=== PATIENT | male | born 1945 | race Caucasian/White ===

== ENCOUNTER → 2018-05-26 | Outpatient (CLI) | payer MEDICARE, OTHER ==
[~2018-05-26] MED LIST: DULO30CA2 PO; GABA300C10 PO; TRAM50TA2 PO; amlodipine PO; atorvastatin PO; baclofen PO
[2018-05-26 14:19] LABS: BASOPHILS # (AUTO) 0.05 x10^3/uL (0-0.1); BASOPHILS % (AUTO) 1 % (0-1); EOSINOPHILS # (AUTO) 0.08 x10^3/uL (0-0.4); EOSINOPHILS % (AUTO) 1 % (1-7); LYMPHOCYTES # (AUTO) 1.66 x10^3/uL (1-3.4); LYMPHOCYTES % (AUTO) 27 % (22-44); MD NO; MEAN CORPUSCULAR HEMOGLOBIN 32.6 pg (27.5-34.5); MEAN CORPUSCULAR HGB CONC 34.8 g/dL (33.2-36.2); MEAN CORPUSCULAR VOLUME 93.7 fL (81-97); MEAN PLATELET VOLUME 7.6 fL (7.4-10.4); MONOCYTES # (AUTO) 0.63 x10^3/uL (0.2-0.8); MONOCYTES % (AUTO) 10 % (2-9); NEUTROPHILS % (AUTO) 60 % (42-75); PLATELET COUNT 253 x10^3/uL (130-400); RED BLOOD COUNT 5.02 x10^6/uL (4.38-5.82); RED CELL DISTRIBUTION WIDTH 13.9 % (9.4-14.8)
[2018-05-26 14:29] LABS: ANION GAP 10 mmol/L (5-15); CALCIUM 9.7 mg/dL (8.5-10.1); CHLORIDE 107 mmol/L (98-107); CREATININE 1.01 mg/dL (0.7-1.3)
[2018-05-26 14:30] LABS: INTERNATIONAL NORMALIZED RATIO 1.03 (0.93-1.1); PROTHROMBIN TIME 10.9 Seconds (9.6-11.5)
[2018-05-26 14:31] LABS: MICROSCOPIC NOT IND
[2018-05-26 14:44] LABS: CULTURE INDICATED? NO
== END | disposition home or self-care (01) ==
LOC: STAR 12:33
PROVIDERS: ATTEND Neurological Surgery
DX: Z01.818 Encounter for other preprocedural examination (principal); I44.4 Left anterior fascicular block; M48.062 Spinal stenosis, lumbar region with neurogenic claudication; M51.36 Other intervertebral disc degeneration, lumbar region
CPT/HCPCS: 36415; 71046; 80048; 81003; 85025; 85610; 85730; 93005

== ENCOUNTER 2018-06-04 18:14 | Day surgery (SDC) | payer MEDICARE, OTHER ==
[~2018-06-04] VITALS: Ht 188 cm; Wt 99.5 kg
[2018-06-04 08:39] VITALS: BP 147/95
[~2018-06-04 18:14] MED LIST changes: +AMLO-150 PO; +ATOR10TA9 PO; +BACITRACIN 50,000 UNIT ONE; +BACL-19 PO; +BUPIVACAINE 0.25% ONE; +BUPIVACAINE LIPOSOME/PF 20ML INFIL ONE; +BUPIVACAINE/PF 0.25% EPIDPUSH ONE; +BUPIVACAINE/PF-EPI 0.5% 1:200K ONE; +CEFAZOLIN 1,000 MG ONE; +DEXAMETHASONE 4 MG/ML, 1ML ONE; +FAMOTIDINE 20 MG TABLET PO ONE; +FENTANYL PF 100 MCG/2ML EPIDPUSH ONE; +FENTANYL PF 100 MCG/2ML IV PRN; +FENTANYL PF 100 MCG/2ML ONE; +FENTANYL PF 250 MCG/5ML ONE; +GABAPENTIN 300 MG CAPSULE PO ONE; +HYDROmorphone 1 MG/ML, 1ML IV PRN; +LABETALOL 5MG/ML, 20ML IV PRN; +LACTATED RINGERS 1,000 ML IV SCH; +MEPERIDINE/PF 25MG/0.5ML IVPush PRN; +MIDAZOLAM 1 MG/ML, 2ML ONE; +ONDANSETRON 2MG/ML, 2ML IV PRN; +ONDANSETRON 2MG/ML, 2ML ONE; +OXYcodone 5 MG/5 ML ORAL.SOL UDC PO PRN; +OxyconTIN ER 10 MG TAB.ER PO ONE; +PROMETHAZINE 25 MG/ML, 1ML IV PRN; +PROPOFOL 10 MG/ML, 20ML ONE; +ROCURONIUM 10MG/ML,5ML ONE; +THROMBIN 5,000 UNIT VIAL TP ONE; +hydrALAzine 20 MG/ML, 1ML IV PRN
== END 2018-06-04 18:15 | disposition home or self-care (01) ==
LOC: OUT 18:14
PROVIDERS: ATTEND Neurological Surgery
DX: M48.062 Spinal stenosis, lumbar region with neurogenic claudication (principal); M54.16 Radiculopathy, lumbar region; M71.38 Other bursal cyst, other site; Z79.899 Other long term (current) drug therapy; Z87.891 Personal history of nicotine dependence; Z72.89 Other problems related to lifestyle; Z87.39 Personal history of other diseases of the musculoskeletal system and connective tissue
CPT/HCPCS: 63030; 63035; 72100; C1751; C9290; J0690; J1100; J2250; J2405; J2704; J3010; J3490; J7120

== ENCOUNTER 2019-01-19 12:35 | Outpatient (CLI) | payer MEDICARE, OTHER ==
[~2019-01-19 12:35] MED LIST changes: -BACITRACIN 50,000 UNIT ONE; -BUPIVACAINE 0.25% ONE; -BUPIVACAINE LIPOSOME/PF 20ML INFIL ONE; -BUPIVACAINE/PF 0.25% EPIDPUSH ONE; -BUPIVACAINE/PF-EPI 0.5% 1:200K ONE; -CEFAZOLIN 1,000 MG ONE; -DEXAMETHASONE 4 MG/ML, 1ML ONE; -FAMOTIDINE 20 MG TABLET PO ONE; -FENTANYL PF 100 MCG/2ML EPIDPUSH ONE; -FENTANYL PF 100 MCG/2ML IV PRN; -FENTANYL PF 100 MCG/2ML ONE; -FENTANYL PF 250 MCG/5ML ONE; -GABAPENTIN 300 MG CAPSULE PO ONE; -HYDROmorphone 1 MG/ML, 1ML IV PRN; -LABETALOL 5MG/ML, 20ML IV PRN; -LACTATED RINGERS 1,000 ML IV SCH; -MEPERIDINE/PF 25MG/0.5ML IVPush PRN; -MIDAZOLAM 1 MG/ML, 2ML ONE; -ONDANSETRON 2MG/ML, 2ML IV PRN; -ONDANSETRON 2MG/ML, 2ML ONE; -OXYcodone 5 MG/5 ML ORAL.SOL UDC PO PRN; -OxyconTIN ER 10 MG TAB.ER PO ONE; -PROMETHAZINE 25 MG/ML, 1ML IV PRN; -PROPOFOL 10 MG/ML, 20ML ONE; -ROCURONIUM 10MG/ML,5ML ONE; -THROMBIN 5,000 UNIT VIAL TP ONE; -hydrALAzine 20 MG/ML, 1ML IV PRN
[2019-01-19 14:20] LABS: BASOPHILS # (AUTO) 0.03 x10^3/uL (0-0.1); BASOPHILS % (AUTO) 1 % (0-1); EOSINOPHILS % (AUTO) 2 % (1-7); LYMPHOCYTES # (AUTO) 1.35 x10^3/uL (1-3.4); LYMPHOCYTES % (AUTO) 22 % (22-44); MD NO; MEAN CORPUSCULAR HEMOGLOBIN 32.5 pg (27.5-34.5); MEAN CORPUSCULAR HGB CONC 33.3 g/dL (33.2-36.2); MEAN CORPUSCULAR VOLUME 97.5 fL (81-97); MEAN PLATELET VOLUME 7.6 fL (7.4-10.4); MONOCYTES # (AUTO) 0.54 x10^3/uL (0.2-0.8); MONOCYTES % (AUTO) 9 % (2-9); NEUTROPHILS # (AUTO) 4.19 x10^3/uL (1.8-6.8); NEUTROPHILS % (AUTO) 67 % (42-75); PLATELET COUNT 254 x10^3/uL (130-400); RED BLOOD COUNT 4.83 x10^6/uL (4.38-5.82); RED CELL DISTRIBUTION WIDTH 14.1 % (9.4-14.8)
[2019-01-19 14:28] LABS: INTERNATIONAL NORMALIZED RATIO 1.01 (0.93-1.1); PROTHROMBIN TIME 10.6 Seconds (9.6-11.5)
[2019-01-19 14:29] LABS: MICROSCOPIC NOT IND
[2019-01-19 14:54] LABS: ANION GAP 9 mmol/L (5-15); CALCIUM 9.6 mg/dL (8.5-10.1); CHLORIDE 108 mmol/L (98-107)
[2019-01-19 15:10] LABS: HEMOGLOBIN A1C 4.9 % (4.2-6.3)
== END 2019-01-19 23:59 | disposition home or self-care (01) ==
LOC: STAR 12:35
PROVIDERS: ATTEND Student in an Organized Health Care Education/Training Program
DX: Z01.818 Encounter for other preprocedural examination (principal); R33.9 Retention of urine, unspecified; R94.31 Abnormal electrocardiogram [ECG] [EKG]; R79.89 Other specified abnormal findings of blood chemistry
CPT/HCPCS: 36415; 80048; 81003; 83036; 85025; 85610; 85730; 87086; 93005

== ENCOUNTER 2019-01-26 10:48 | Day surgery (SDC) | payer MEDICARE, OTHER ==
[~2019-01-26] VITALS: Ht 188 cm; Wt 97.5 kg
[2019-01-26 11:32] VITALS: BP 118/74
== END 2019-01-26 19:00 | disposition home or self-care (01) ==
LOC: OUT 10:48
PROVIDERS: ATTEND Student in an Organized Health Care Education/Training Program
DX: N40.1 Benign prostatic hyperplasia with lower urinary tract symptoms (principal); N13.8 Other obstructive and reflux uropathy; R39.14 Feeling of incomplete bladder emptying; I10 Essential (primary) hypertension; E78.00 Pure hypercholesterolemia, unspecified; Z79.82 Long term (current) use of aspirin; Z79.899 Other long term (current) drug therapy; Z87.891 Personal history of nicotine dependence; Z96.641 Presence of right artificial hip joint
CPT/HCPCS: 52601; 88305; J0330; J0690; J1100; J2405; J2704; J2710; J3010; J7120

== ENCOUNTER 2020-12-29 13:18 | Emergency (ER) | payer MEDICARE, OTHER ==
[~2020-12-29] VITALS: Ht 188 cm; Wt 95.5 kg
--- NOTE | 2020-12-29 13:25 | NUR ---
pt BIB [facility] for dizziness with weakness, N/V since last nocs. upon admit, pt is very nauseated and vomited a very small amount of emesis. pt is diaphoretic. denies CP. no SOB. no family at bedside. EKG has been to bedside pt positioning for comfort
--- NOTE | 2020-12-29 13:58 | NUR ---
pt states that nausea has resolved. currently sitting up on [employer] talking on cell phone awaiting MD to beside
--- NOTE | 2020-12-29 14:10 | NUR ---
Dr Damico at bedside for eval
[2020-12-29] MEDS ORDERED: SODIUM CHLORIDE FLUSH 10ML SYR IVF ONE (14:30)
[2020-12-29] MEDS ORDERED: SODIUM CHLORIDE 0.9% 1,000ML IVBOLUS ONE (14:30)
--- NOTE | 2020-12-29 15:09 | NUR ---
IV infusing. no vomiting noted since admit. tech at bedside for ear irrigation
[2020-12-29 15:14] LABS: BASOPHILS % (AUTO) 0 % (0-1); EOSINOPHILS % (AUTO) 1 % (1-7); LYMPHOCYTES % (AUTO) 10 % (22-44); MEAN CORPUSCULAR HEMOGLOBIN 32.4 pg (27.5-34.5); MEAN CORPUSCULAR HGB CONC 34.5 g/dL (33.2-36.2); MEAN PLATELET VOLUME 8.2 fL (7.4-10.4); MONOCYTES % (AUTO) 6 % (2-9); NEUTROPHILS % (AUTO) 83 % (42-75); PLATELET COUNT 156 x10^3/uL (130-400); RED BLOOD COUNT 5.06 x10^6/uL (4.38-5.82)
[2020-12-29 15:16] LABS: ALBUMIN 3.6 g/dL (3.4-5.0); ANION GAP 5 mmol/L (5-15); CALCIUM 9.3 mg/dL (8.5-10.1); CHLORIDE 109 mmol/L (98-107)
[2020-12-29 15:20] LABS: ALANINE AMINOTRANSFERASE 32 U/L (12-78); ALKALINE PHOSPHATASE 113 U/L (45-117); BILIRUBIN,TOTAL 1.4 mg/dL (0.2-1.0); CREATININE 1.04 mg/dL (0.7-1.3); TOTAL PROTEIN 7.1 g/dL (6.4-8.2)
--- NOTE | 2020-12-29 15:54 | NUR ---
irrigation complete. no new c/o. no vomiting friend at bedside chart up for MD recheck
--- NOTE | 2020-12-29 16:30 | NUR ---
no changes. pt resting in position of comfort. no vomiting. awating MD recheck
[2020-12-29] MEDS ORDERED: MECLIZINE CHEWABLE 25 MG TAB ONE (16:58)
[2020-12-29] MEDS ORDERED: MECLIZINE CHEWABLE 25 MG TAB PO ONE (17:00)
--- NOTE | 2020-12-29 17:15 | NUR ---
pt ambualted to [facility] without difficulty. no new c/o
[2020-12-29 17:42] VITALS: BP 140/83
[2021-02-09] MEDS ORDERED: OXYC1TAB12 PO (06:38)
[2021-02-09] MEDS ORDERED: METH-640 PO (06:38)
== END 2020-12-29 17:47 | disposition home or self-care (01) ==
LOC: ED 14:36
DX: R42 Dizziness and giddiness (principal); R11.2 Nausea with vomiting, unspecified; R94.31 Abnormal electrocardiogram [ECG] [EKG]; I10 Essential (primary) hypertension; E78.00 Pure hypercholesterolemia, unspecified; Z87.891 Personal history of nicotine dependence
CPT/HCPCS: 36415; 80053; 85025; 93005; 96360; 99285; J7030

== ENCOUNTER 2021-02-01 12:30 | Outpatient (CLI) | payer MEDICARE, OTHER ==
[2021-02-01] MEDS ORDERED: MULT-449 PO (14:14)
[2021-02-01] MEDS ORDERED: GABA300C PO (14:14)
[2021-02-01] MEDS ORDERED: ASPI81TA45 PO (14:14)
[2021-02-01] MEDS ORDERED: TERA5CAP3 PO (14:14)
[2021-02-01] MEDS ORDERED: AREDs PO (14:14)
[2021-02-01 14:38] LABS: MICROSCOPIC NOT IND
[2021-02-01 14:42] LABS: BASOPHILS % (AUTO) 1 % (0-1); EOSINOPHILS % (AUTO) 3 % (1-7); LYMPHOCYTES % (AUTO) 29 % (22-44); MEAN CORPUSCULAR HGB CONC 33.9 g/dL (33.2-36.2); MEAN PLATELET VOLUME 7.8 fL (7.4-10.4); MONOCYTES % (AUTO) 10 % (2-9); NEUTROPHILS % (AUTO) 58 % (42-75); PLATELET COUNT 181 x10^3/uL (130-400); RED CELL DISTRIBUTION WIDTH 14.5 % (9.4-14.8)
[2021-02-01 14:51] LABS: CALCIUM 9.7 mg/dL (8.5-10.1); CREATININE 1.01 mg/dL (0.7-1.3)
[2021-02-01 14:57] LABS: INTERNATIONAL NORMALIZED RATIO 1.02 (0.93-1.1); PROTHROMBIN TIME 10.9 Seconds (9.6-11.5)
[2021-02-01 15:03] LABS: ANION GAP 3 mmol/L (5-15); CHLORIDE 105 mmol/L (98-107)
[2021-02-09] MEDS ORDERED: METH-640 PO (06:38)
[2021-02-09] MEDS ORDERED: OXYC1TAB12 PO (06:38)
== END 2021-02-01 23:59 | disposition home or self-care (01) ==
LOC: STAR 12:30
PROVIDERS: ATTEND Neurological Surgery
DX: Z01.810 Encounter for preprocedural cardiovascular examination (principal); Z01.811 Encounter for preprocedural respiratory examination; Z01.812 Encounter for preprocedural laboratory examination; R79.1 Abnormal coagulation profile; R82.90 Unspecified abnormal findings in urine; M50.122 Cervical disc disorder at C5-C6 level with radiculopathy; R94.31 Abnormal electrocardiogram [ECG] [EKG]; I44.4 Left anterior fascicular block; I25.2 Old myocardial infarction; R00.1 Bradycardia, unspecified
CPT/HCPCS: 36415; 71046; 80048; 81003; 85025; 85610; 85730; 93005